=== PATIENT | female | born 1960 | race Caucasian/White ===

== ENCOUNTER 2018-05-04 09:04 | Emergency (ER) | payer BC, OTHER ==
--- NOTE | 2018-05-04 09:36 | UC ---
General HPI - HPI Summary HPI Summary: Patient was stung by a swarm of bees that got entangled in her hair about an hour ago. She was stung on right ear, scalp, forehead. Hx of asthma, denies itch , dysphagia or wheezing, denies SOB or CP/palpitations. She is not allergic to bee venom. She states last episode of asthma was 2 months ago in February. - History of Current Complaint Chief Complaint: UCSkin Stated Complaint: BEE STING(S) Time Seen by Provider: 05/04/18 09:14 Hx Last Menstrual Period: 2013 Pain Intensity: 4 - Allergy/Home Medications Allergies/Adverse Reactions: Allergies Allergy/AdvReac Type Severity Reaction Status Date / Time environmental Allergy Runny Nose Uncoded 05/04/18 09:16 Home Medications: Home Medications Nebulizer Tx 1 unit INH Q8HR PRN 05/04/18 [History Confirmed 05/04/18] Rx Nasal [place] 2 spray BOTH NARES BID 05/04/18 [History Confirmed 05/04/18] PMH/Surg Hx/FS Hx/Imm Hx Previously Healthy: Yes Respiratory History: Asthma - Surgical History Surgical History: Yes Surgery Procedure, Year, and Place: Lithotripsy x 2-2001 - Family History Known Family History: Positive: None - Social History Alcohol Use: Rare Substance Use Type: None Smoking Status (MU): Never Smoked Tobacco - Immunization History Most Recent Influenza Vaccination: 06/2013 Most Recent Tetanus Shot: UNKNOWN Review of Systems Constitutional: Negative Skin: Rash Eyes: Negative ENT: Negative Respiratory: Negative Cardiovascular: Negative Gastrointestinal: Negative Genitourinary: Negative Motor: Negative Neurovascular: Negative Musculoskeletal: Negative Neurological: Negative All Other Systems Reviewed And Are Negative: Yes Physical Exam - Summary Physical Exam Summary: Patient was stung several times on face, ear and scalp by bees. No constitutional symptoms, take benadryl when at home and as needed, hydrocortisone cream for areas where is itchy or inflamed for a maximun of 5 days. f/u with PCP, referred to [facility] [place] Triage Information Reviewed: Yes Appearance: Well-Appearing, No Pain Distress, Well-Nourished Vital Signs: Initial Vital Signs Temp 98 F 05/04/18 09:07 Pulse 80 05/04/18 09:07 Resp 16 05/04/18 09:07 BP 168/92 05/04/18 09:07 Pulse Ox 98 05/04/18 09:07 Vital Signs Reviewed: Yes Eyes: Positive: Conjunctiva Clear ENT: Positive: Hearing grossly normal, Pharynx normal, TMs normal, Uvula midline Neck: Positive: Supple, Nontender, No Lymphadenopathy Respiratory: Positive: Chest non-tender, Lungs clear, Normal breath sounds, No respiratory distress Cardiovascular: Positive: RRR, No Murmur, Pulses Normal, Brisk Capillary Refill Abdomen Description: Positive: Nontender, No Organomegaly, Soft Skin Exam: Other Skin: Positive: rashes - erythema of right ear [place] without bruising or soft tissue swelling, no d/c or bleed. Erythema on forehead and scalp area with similar characteristics Course/Dx - Course Course Of Treatment: patient wit - Differential Dx - Multi-Symptom Provider Diagnoses: Bee stings. Elevated BP without history of HTN Discharge - Sign-Out/Discharge Documenting (check all that apply): Patient Departure All imaging exams completed and their final reports reviewed: No Studies - Discharge Plan Condition: Stable Disposition: HOME Prescriptions: Hydrocortisone 2.5% CREAM(NF) 1 applic TOPICAL BID PRN 5 Days #1 tube PRN Reason: Itching Patient Education Materials: Insect Bite or Sting (ED), Hydrocortisone (On the skin) Referrals: [facility] [place] PHYSICIAN REFERRAL [Outside] No Primary Care Phys,NOPCP [Primary Care Provider] - - Billing Disposition and Condition Condition: STABLE Disposition: Home
[2018-05-04] MEDS ORDERED: diPHENhydraMINE PO* 25 MG PO ONE (09:37)
[2018-05-04 09:55] VITALS: BP 147/79
--- OUTSIDE RECORDS SUMMARY | 2018-05-04 10:07 | XMS REPORT ---
:1960 External Reference #:[id number] Author Organization [facility] Address [address] [place] [address] Phone [phone] Care Team Providers Name Role Phone Suzette Mota M.D. Care Team Information Product Manager Unavailable Gregoria Manzo N.P. Primary Care Physician Unavailable Payers Type Date Identification Numbers Payment Provider Subscriber Commercial Effective: Policy Number: [id number] [facility] Josh Armstrong 2011 Healthcare Expires: 2013 PayID: [id number] [address] [place] [address] Medigap Part B Effective: 2013 Policy Number: BC/BS Of [place] Miguel Armstrong [id number] PayID: [id number] [address] [address] [place] [address] Problems Date Description Provider Status Onset: 12/08/2016 Uncomplicated moderate persistent EleonoraBIB Shetty Active asthma Onset: 12/08/2016 Allergic rhinitis due to animals BIB Burt Active Onset: 06/24/2014 Exacerbation of asthma SHERWIN Nunn Active Onset: 02/27/2014 Extrinsic asthma without status SHERWIN Nunn Active asthmaticus Onset: 02/27/2014 Allergic rhinitis SHERWIN Nunn Active Onset: 02/27/2014 Allergic rhinitis due to pollen SHERWIN Nunn Active Family History Date Family Member(s) Problem(s) Comments General Seasonal Allergies First Brother Seasonal Allergies First Sister Seasonal Allergies Social History Type Date Description Comments Marital Status Legal Status: Lives With Spouse Lives With niece Smoke-Free Home is smoke-free Smoke-Free Work is smoke-free Pets 2 cats Pets 3 dogs 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 ETOH Use Occasionally consumes alcohol Smoking Patient has never smoked Recreational Drug Use Denies Drug Use Allergies, Adverse Reactions, Alerts Date Description Reaction Status Severity Comments 04/24/2014 NKDA active Medications Medication Date Status Form Strength Qnty SIG Indications Ordering Provider Ipratropium 04/25/ Active Solution 0.03% 30ml 2 squirts J30.1 Patti [place] 2018 each nostril Uldrich, in the [facility] morning and at night Dymista 12/08/ Active Suspension 137-50mcg/ 23gm 1 squirt J30.1 Patti 2017 Act each nostril Uldrich, once a day [facility] Nebulizer 06/24/ Active Misc 1unit with tubing J30.1 Armida 2014 s and Karly, supplies, [facility] use as directed. dx: 493.00 Ipratropium 06/24/ Active Solution 0.5-2.5(3) 1box 1 vial via J30.1 Armida [place]/Albut 2014 mg/3ML nebulizer Karly, jenelle Sulfate every 6-8 [facility] hours as needed. Proair HFA 02/27/ Active Aerosol 108(90Base 17gm two Patti 2013 ) mcg/Act inhalations Uldrich, every 4 [facility] hours as needed for cough, wheezing or chest tightness Advair Diskus / Active Aerosol 500-50mcg/ 1unit 1 puff twice Armida 0000 Dose s daily Karly, [facility] Ipratropium 04/25/ Hx Solution 0.06% 15ml 2 sprays per J30.1 Patti [place] Nasal 2018 - nostril Uldrich, [place] 04/25/ every 4 [facility] 2018 hours as needed for nasal discharge Medications Administered in Office Medication Date Status Form Strength Qnty SIG Indications Ordering Provider Injection 08/09/ Administered Injection Alex Oro M.D. Injection 07/05/ Administered Injection Alex 2011 Boyd Oro Injection 06/14/ Administered Injection Alex 2011 Boyd Oro Injection 05/24/ Administered Injection Alex 2011 Boyd Oro Injection 05/10/ Administered Injection Alex 2011 Boyd Oro Injection 04/19/ Administered Injection Alex 2011 Boyd Oro Injection 04/05/ Administered Injection Alex 2011 Boyd Oro Injection 03/22/ Administered Injection Alex 2011 Boyd Oro Injection 02/20/ Administered Injection Alex 2011 Boyd Oro Injection 01/30/ Administered Injection Alex 2011 Boyd Oro Injection 01/18/ Administered Injection Alex 2011 Boyd Oro Injection 01/04/ Administered Injection Alex 2011 Boyd Oro Injection 12/14/ Administered Injection Alex 2011 Boyd Oro Injection 11/30/ Administered Injection Alex 2011 Boyd Oro Injection 10/11/ Administered Injection Alex 2011 Boyd Oro Injection 09/15/ Administered Injection Alex 2011 Boyd Oro Injection 08/25/ Administered Injection Sridhar Luis 2010 AbdulazizDAndreina Injection 08/02/ Administered Injection Gris Bhavana 2010 Boyd Smith Injection 07/07/ Administered Injection Alex 2010 Boyd Oro Injection 06/23/ Administered Injection Alex 2010 Boyd Oro Injection 06/09/ Administered Injection Alex 2010 Boyd Oro Injection 05/26/ Administered Injection Alex 2010 Boyd Oro Injection 05/05/ Administered Injection Alex 2010 Boyd Oro Injection 04/21/ Administered Injection Alex 2010 Boyd Oro Injection 03/31/ Administered Injection Alex 2010 Boyd Oro Injection 03/10/ Administered Injection Alex 2010 Boyd Oro Injection 02/17/ Administered Injection Alex 2010 Boyd Oro Injection 01/20/ Administered Injection Alex 2010 Abdulaziz OroDAndreina Injection 01/06/ Administered Injection Alex 2010 Boyd Oro Injection 12/23/ Administered Injection Alex 2010 Boyd Oro Injection 12/09/ Administered Injection Alex 2010 Boyd Oro Injection 11/25/ Administered Injection Alex 2010 Boyd Oro Injection 11/11/ Administered Injection Alex 2010 Boyd Oro Injection 10/21/ Administered Injection Alex 2010 Boyd Oro Injection 09/23/ Administered Injection Alex 2010 Boyd Oro Injection 08/19/ Administered Injection Alex 2009 Boyd Oro Injection 07/20/ Administered Injection Alex 2009 Boyd Oro Injection 06/24/ Administered Injection Alex 2009 Boyd Oro Injection 06/08/ Administered Injection Alex 2009 Boyd Oro Injection 05/25/ Administered Injection Alex 2009 Boyd Oro Injection 04/29/ Administered Injection Alex 2009 Boyd Oro Injection 03/25/ Administered Injection Alex 2009 Boyd Oro Injection 03/11/ Administered Injection Alex 2009 Boyd Oro Injection 02/25/ Administered Injection Alex 2009 Boyd Oro Injection 02/11/ Administered Injection Alex 2009 Boyd Oro Injection 01/21/ Administered Injection Alex 2009 Boyd Oro Injection 01/07/ Administered Injection Alex 2009 Boyd Oro Injection 12/24/ Administered Injection Alex 2009 Boyd Oro Injection 11/12/ Administered Injection Alex 2009 Boyd Oro Injection 10/15/ Administered Injection Alex 2009 Boyd Oro Injection 09/24/ Administered Injection [facility] 2009 Catracho Graves M.D. Injection 08/04/ Administered Injection Alex 2008 Boyd Oro Injection 07/16/ Administered Injection Alex 2008 Boyd Oro Injection 06/25/ Administered Injection Alex 2008 Boyd Oro Injection 06/11/ Administered Injection Alex 2008 Boyd Oro Injection 05/28/ Administered Injection Alex 2008 Boyd Oro Injection 05/14/ Administered Injection Alex 2008 Boyd Oro Injection 04/30/ Administered Injection Alex 2008 Boyd Oro Injection 04/16/ Administered Injection Alex 2008 Boyd Oro Injection 04/02/ Administered Injection Alex 2009 Boyd Oro Injection 03/17/ Administered Injection Alex 2008 Boyd Oro Injection 02/12/ Administered Injection Alex 2008 Boyd Oro Injection 01/27/ Administered Injection Alex 2008 Boyd Oro Injection 01/13/ Administered Injection Alex 2008 Boyd Oro Injection 12/30/ Administered Injection Alex 2008 Boyd Oro Injection 12/16/ Administered Injection Alex 2009 Boyd Oro Injection 11/13/ Administered Injection Alex 2009 Boyd Oro Injection 10/16/ Administered Injection Alex 2008 Boyd Oro Injection 09/16/ Administered Injection Alex 2008 Boyd Oro Injection 08/26/ Administered Injection Alex 2007 Boyd Oro Injection 08/12/ Administered Injection Alex 2007 Boyd Oro Injection 07/08/ Administered Injection Alex 2007 Boyd Oro Injection 06/24/ Administered Injection Alex 2007 Boyd Oro Injection 06/10/ Administered Injection Alex 2007 Boyd Oro Injection 05/20/ Administered Injection Alex 2007 Boyd Oro Injection 05/08/ Administered Injection Alex 2007 Boyd Oro Injection 04/22/ Administered Injection Alex 2007 Boyd Oro Injection 04/03/ Administered Injection Alex 2007 Boyd Oro Injection 03/20/ Administered Injection Alex 2007 Boyd Oro Injection 02/27/ Administered Injection Alex 2007 Boyd Oro Injection 02/13/ Administered Injection Alex 2007 Boyd Oro Injection 01/30/ Administered Injection Alex 2007 Boyd Oro Injection 01/16/ Administered Injection Alex 2007 Boyd Oro Celestone/Cor 01/14/ Administered Injection Alex tisone 2007 Shorty [id number] Enrike Nix cc Injection 01/02/ Administered Injection Alex 2007 Boyd Oro Injection 12/10/ Administered Injection Alex 2007 Boyd Oro Injection 11/19/ Administered Injection Alex 2007 Boyd Oro Injection 11/06/ Administered Injection Alex 2007 Boyd Oro Injection 10/16/ Administered Injection Alex 2007 Boyd Oro Injection 09/27/ Administered Injection Alex 2007 Boyd Oro Injection 09/13/ Administered Injection Alex 2007 Boyd Oro Injection 08/30/ Administered Injection Alex 2006 Boyd Oro Injection 07/31/ Administered Injection Alex 2006 Boyd Oro Injection 07/17/ Administered Injection Alex 2006 Boyd Oro Injection 07/03/ Administered Injection Alex 2006 Boyd Oro Injection 06/12/ Administered Injection Alex 2006 Boyd Oro Injection 05/29/ Administered Injection Alex 2007 Boyd Oro Injection 05/08/ Administered Injection Alex 2007 Boyd Oro Injection 04/17/ Administered Injection Alex 2007 Boyd Oro Injection 04/03/ Administered Injection Alex 2007 Boyd Oro Injection 03/15/ Administered Injection Alex 2007 Boyd Oro Injection 02/20/ Administered Injection Alex 2007 Boyd Oro Injection 02/06/ Administered Injection Alex 2007 Boyd Oro Injection 01/23/ Administered Injection Alex 2007 Boyd Oro Injection 01/09/ Administered Injection Alex 2007 Boyd Oro Injection 12/28/ Administered Injection Alex 2007 Boyd Oro Injection 12/07/ Administered Injection Alex 2007 Boyd Oro Injection 11/23/ Administered Injection Alex 2007 Boyd Oro Injection 11/07/ Administered Injection Alex 2007 Boyd Oro Injection 10/17/ Administered Injection Alex 2007 Boyd Oro Injection 09/19/ Administered Injection Alex 2007 Boyd Oro Injection 09/05/ Administered Injection Alex 2006 Boyd Oro Injection 08/22/ Administered Injection Alex 2005 Boyd Oro Injection 08/08/ Administered Injection Alex 2006 Boyd Oro Injection 07/27/ Administered Injection Alex 2006 Boyd Oro Injection 06/27/ Administered Injection Alex 2006 Boyd Oro Injection 06/06/ Administered Injection Alex 2006 Boyd Oro Injection 05/23/ Administered Injection Alex 2006 Boyd Oro Injection 05/09/ Administered Injection Alex 2006 Boyd Oro Injection 04/25/ Administered Injection Alex 2006 Boyd Oro Injection 04/11/ Administered Injection Alex 2006 Boyd Oro Injection 03/28/ Administered Injection Alex 2006 Boyd Oro Injection 02/28/ Administered Injection Alex 2006 Boyd Oro Injection 02/14/ Administered Injection Alex 2006 Boyd Oro Injection 01/31/ Administered Injection Alex 2006 Boyd Oro Injection 01/12/ Administered Injection Alex 2006 Boyd Oro Injection 12/29/ Administered Injection Alex 2006 Boyd Oro Injection 12/01/ Administered Injection Alex 2006 Boyd Oro Injection 11/15/ Administered Injection Alex 2006 Boyd Oro Injection 10/25/ Administered Injection Alex 2006 Boyd Oro Injection 10/11/ Administered Injection Alex 2006 Boyd Oro Injection 09/13/ Administered Injection Alex 2006 Boyd Oro Injection 08/18/ Administered Injection Alex 2005 Boyd Oro Injection 07/21/ Administered Injection Alex 2005 Boyd Oro Injection 07/07/ Administered Injection Alex 2005 Boyd Oro Injection 06/23/ Administered Injection Alex 2004 Boyd Oro Injection 06/07/ Administered Injection Alex 2004 Boyd Oro Injection 05/24/ Administered Injection Alex 2004 Boyd Oro Injection 05/10/ Administered Injection Alex 2005 Boyd Oro Injection 04/14/ Administered Injection Alex 2005 Boyd Oro Injection 03/31/ Administered Injection Alex 2005 Boyd Oro Injection 03/17/ Administered Injection Alex 2005 Boyd Oro Injection 03/01/ Administered Injection Alex 2005 Bhavana Oro.DAndreina Injection 02/15/ Administered Injection Alex 2005 Shorty M.D. Injection 02/03/ Administered Injection Alex 2005 Shorty M.D. Injection 01/18/ Administered Injection Alex 2005 Bhavana Oro.D. Injection 01/04/ Administered Injection Alex 2005 Bhavana Oro.DAndreina Injection 12/21/ Administered Injection Alex 2005 Bhavana Oro.D. Injection 12/09/ Administered Injection Alex 2005 Abdulaziz OroDAndreina Injection 11/11/ Administered Injection Alex 2005 Abdulaziz OroDAndreina Injection 10/12/ Administered Injection Alex 2005 Bhavana rOo.DAndreina Injection 09/14/ Administered Injection Alex 2005 Abdulaziz OroDAndreina Injection 08/19/ Administered Injection Alex 2004 Boyd Oro Injection 07/22/ Administered Injection Alex 2004 Boyd Oro Injection 06/24/ Administered Injection Alex 2004 Bhavana Oro.D. Injection 06/08/ Administered Injection Alex 2004 Bahvana Oro.DAndreina Injection 05/25/ Administered Injection Alex 2004 Boyd Oro Injection 05/11/ Administered Injection Alex 2004 Boyd Oro Injection 04/22/ Administered Injection Alex 2004 Bhavana Oro.DAndreina Injection 03/30/ Administered Injection Alex 2004 Abdulaziz OroD. Injection 03/18/ Administered Injection Alex 2004 Bhavana Oro.D. Injection 03/02/ Administered Injection Alex 2004 Shorty M.D. Injection 02/16/ Administered Injection Alex 2004 Bhavana Oro.DAndreina Injection 02/02/ Administered Injection Alex 2004 Boyd Oro Injection 01/19/ Administered Injection Alex 2004 Bhavana Oro.D. Injection 01/05/ Administered Injection Alex 2004 Shorty M.D. Injection 12/22/ Administered Injection Alex 2004 Bhavana Oro.D. Injection 12/03/ Administered Injection Alex 2004 Abdulaziz OroDAndreina Injection 11/04/ Administered Injection Alex 2004 Abdulaziz OroDAndreina Injection 10/02/ Administered Injection Alex 2003 Boyd Oro Injection 09/02/ Administered Injection Alex 2002 Boyd Oro Injection 07/31/ Administered Injection Alex 2002 Boyd Oro Injection 07/03/ Administered Injection Alex 2002 Boyd Oro Injection 06/19/ Administered Injection Alex 2002 Boyd Oro Injection 06/05/ Administered Injection Alex 2002 Boyd Oro Injection 05/22/ Administered Injection Alex 2002 Boyd Oro Injection 05/08/ Administered Injection Alex 2002 Boyd Oro Injection 04/24/ Administered Injection Alex 2002 Boyd Oro Injection 04/10/ Administered Injection Alex 2002 Boyd Oro Immunizations CPT Code Status Date Vaccine Lot # [id number] Given 07/03/2014 Pneumococcal Vaccine 20045 Given 07/03/2014 Influenza Vaccine 48610 Given 06/11/2013 Influenza Vaccine 27711 Given Unknown Influenza Vaccine 93487 Given Unknown Influenza Vaccine 67000 Given Unknown Pneumococcal Conjugate Vaccine 13 Valent For Intramuscular Use Vital Signs Date Vital Result Comment 04/25/2018 Height 65 inches 5'5" Weight 131.00 lb Weight in kg's 59.422 Respiratory Rate 16 /min Heart Rate 85 /min O2 % BldC Oximetry 98 % BP Systolic 115 mmHg BP Diastolic 78 mmHg Asthma Control Test 24 BMI (Body Mass Index) 21.8 kg/m2 12/08/2016 Height 65 inches 5'5" Weight 128.00 lb Weight in kg's 58.061 Respiratory Rate 16 /min Heart Rate 73 /min O2 % BldC Oximetry 98 % BP Systolic 135 mmHg BP Diastolic 72 mmHg Asthma Control Test 24 BMI (Body Mass Index) 21.3 kg/m2 07/08/2014 Height 65 inches 5'5" Weight 137.00 lb Weight in kg's 62.143 Respiratory Rate 19 /min Heart Rate 80 /min O2 % BldC Oximetry 98 % BP Systolic 122 mmHg BP Diastolic 78 mmHg Asthma Control Test 14 BMI (Body Mass Index) 22.8 kg/m2 06/24/2014 Height 65 inches 5'5" Weight 137.00 lb Weight in kg's 62.143 Respiratory Rate 16 /min Heart Rate 81 /min Body Temperature 98.2 F O2 % BldC Oximetry 98 % BP Systolic 120 mmHg BP Diastolic 90 mmHg Asthma Control Test 5 BMI (Body Mass Index) 22.8 kg/m2 04/24/2014 Height 65 inches 5'5" Weight 142.00 lb Weight in kg's 64.411 Respiratory Rate 16 /min Heart Rate 87 /min O2 % BldC Oximetry 97 % BP Systolic 122 mmHg BP Diastolic 80 mmHg Asthma Control Test 21 BMI (Body Mass Index) 23.6 kg/m2 02/27/2014 Height 65 inches 5'5" Weight 137.00 lb Weight in kg's 62.143 Respiratory Rate 18 /min Heart Rate 72 /min O2 % BldC Oximetry 97 % BP Systolic 130 mmHg BP Diastolic 74 mmHg BMI (Body Mass Index) 22.8 kg/m2 Results Description No Information Procedures Date CPT Code Description Status 04/25/2018 43039 Pre PFT Completed 04/20/2018 90879 Extract 1-10 Completed 10/04/2017 12978 Extract 1-10 Completed 10/04/2017 44424 Extract 1-10 Completed 05/03/2017 07941 Extract 1-10 Completed 05/03/2017 38517 Extract 1-10 Completed 12/08/2016 40318 Pre PFT Completed 11/01/2016 61384 Extract 1-10 Completed 05/13/2016 62806 Extract 1-10 Completed 01/06/2016 35330 Extract 1-10 Completed 06/11/2015 35585 Extract 1-10 Completed 01/21/2015 40964 Extract 1-10 Completed 06/24/2014 02840 Ippb Completed 06/24/2014 90930 Ippb Completed 06/24/2014 23365 Extract 1-10 Completed 04/24/2014 26287 Pre PFT Completed 04/24/2014 49778 Pre PFT Completed 02/27/2014 87257 Pre PFT Completed 02/27/2014 44130 Pre PFT Completed 02/14/2014 76067 Extract 1-10 Completed 05/14/2013 51984 Extract 1-10 Completed 01/23/2013 69177 Extract 1-10 Completed 08/09/2012 16974 Injection Completed 07/05/2012 38436 Injection Completed 06/14/2012 44977 Injection Completed 05/24/2012 33185 Extract 1-10 Completed 05/24/2012 89524 Injection Completed 05/10/2012 90069 Injection Completed 04/19/2012 93452 Injection Completed 04/05/2012 31462 Injection Completed 03/22/2012 85634 Injection Completed 02/21/2012 32305 Injection Completed 01/31/2012 29869 Injection Completed 01/19/2012 19425 Injection Completed 01/05/2012 69075 Injection Completed 12/15/2011 72701 Injection Completed 12/01/2011 04769 Injection Completed 11/01/2011 88959 Extract 1-10 Completed 10/11/2011 24531 Injection Completed 09/15/2011 08569 Injection Completed 09/15/2011 52247 Oxygen Level - Pulse Oximiter Completed 09/15/2011 27546 Pulmonary Function Test Completed 08/25/2011 84772 Injection Completed 08/02/2011 18023 Injection Completed 07/07/2011 30697 Injection Completed 06/23/2011 10425 Injection Completed 06/09/2011 59859 Injection Completed 05/26/2011 85085 Injection Completed 05/05/2011 67665 Injection Completed 04/21/2011 23581 Injection Completed 04/12/2011 19891 Extract 1-10 Completed 03/31/2011 81171 Injection Completed 03/17/2011 25069 Pulmonary Function Test Completed 03/10/2011 29766 Injection Completed 02/17/2011 26088 Injection Completed 01/20/2011 07347 Injection Completed 01/06/2011 17990 Injection Completed 12/23/2010 17806 Injection Completed 12/09/2010 52794 Injection Completed 11/25/2010 61555 Injection Completed 11/11/2010 73839 Injection Completed 10/21/2010 76474 Injection Completed 10/19/2010 81170 Extract 1-10 Completed 09/23/2010 42819 Injection Completed 08/19/2010 55609 Injection Completed 07/20/2010 26427 Injection Completed 06/24/2010 48562 Injection Completed 06/08/2010 62279 Injection Completed 06/08/2010 60677 Pulmonary Function Test Completed 05/25/2010 71692 Injection Completed 04/29/2010 32718 Injection Completed 03/25/2010 32423 Injection Completed 03/11/2010 41212 Injection Completed 02/25/2010 58663 Injection Completed 02/23/2010 24452 Extract 1-10 Completed 02/11/2010 81028 Injection Completed 01/21/2010 07618 Injection Completed 01/07/2010 21564 Injection Completed 12/24/2009 37892 Injection Completed 11/12/2009 13154 Injection Completed 10/15/2009 18364 Injection Completed 09/24/2009 50708 Injection Completed 08/04/2009 75550 Injection Completed 07/16/2009 00115 Injection Completed 06/25/2009 11798 Injection Completed 06/23/2009 37324 Extract 1-10 Completed 06/11/2009 90076 Injection Completed 05/28/2009 85070 Injection Completed 05/14/2009 17245 Injection Completed 04/30/2009 11089 Injection Completed 04/16/2009 36250 Injection Completed 04/02/2009 26244 Injection Completed 03/17/2009 99037 Injection Completed 03/17/2009 30573 Pulmonary Function Test Completed 02/12/2009 57342 Injection Completed 01/27/2009 72711 Injection Completed 01/13/2009 86844 Injection Completed 01/08/2009 39380 Extract 1-10 Completed 12/30/2008 83402 Injection Completed 12/16/2008 87637 Injection Completed 11/13/2008 64247 Injection Completed 10/16/2008 06714 Injection Completed 09/16/2008 29138 Injection Completed 08/26/2008 58476 Injection Completed 08/12/2008 14654 Injection Completed 07/08/2008 64679 Injection Completed 06/24/2008 13333 Injection Completed 06/10/2008 68950 Injection Completed 05/29/2008 39947 Extract 1-10 Completed 05/20/2008 56190 Injection Completed 05/08/2008 02272 Injection Completed 04/22/2008 02457 Injection Completed 04/03/2008 02408 Injection Completed 03/20/2008 87575 Injection Completed 02/28/2008 94320 Injection Completed 02/14/2008 49676 Injection Completed 01/31/2008 97733 Injection Completed 01/17/2008 43482 Injection Completed 01/03/2008 06105 Injection Completed 12/20/2007 70329 Extract 1-10 Completed 12/11/2007 39713 Injection Completed 11/20/2007 20468 Injection Completed 11/06/2007 46631 Injection Completed 10/16/2007 68686 Injection Completed 10/11/2007 68074 Pulmonary Function Test Completed 09/27/2007 82938 Injection Completed 09/13/2007 99411 Injection Completed 08/30/2007 06694 Injection Completed 07/31/2007 84619 Injection Completed 07/17/2007 29942 Injection Completed 07/03/2007 74949 Injection Completed 06/14/2007 67049 Extract 1-10 Completed 06/12/2007 45220 Injection Completed 05/29/2007 79152 Injection Completed 05/08/2007 20135 Injection Completed 04/17/2007 51173 Injection Completed 04/03/2007 88144 Injection Completed 03/15/2007 31240 Injection Completed 02/20/2007 27432 Injection Completed 02/06/2007 12581 Injection Completed 01/23/2007 30818 Injection Completed 01/09/2007 41019 Injection Completed 01/04/2007 59749 Extract 1-10 Completed 12/28/2006 63661 Injection Completed 12/07/2006 75237 Injection Completed 11/23/2006 30300 Injection Completed 11/07/2006 31106 Injection Completed 10/17/2006 32378 Injection Completed 09/19/2006 28932 Injection Completed 09/05/2006 07713 Injection Completed 08/22/2006 59359 Injection Completed 08/15/2006 86859 Pulmonary Function Test Completed 08/08/2006 61223 Injection Completed 07/27/2006 07891 Injection Completed 07/20/2006 17960 Extract 1-10 Completed 06/27/2006 45997 Injection Completed 06/06/2006 44332 Injection Completed 05/23/2006 82676 Injection Completed 05/09/2006 23959 Injection Completed 04/25/2006 41013 Injection Completed 04/11/2006 15252 Injection Completed 03/28/2006 44204 Injection Completed 02/28/2006 01535 Injection Completed 02/14/2006 21638 Injection Completed 01/31/2006 89022 Injection Completed 01/24/2006 71732 Pulmonary Function Test Completed 01/19/2006 23348 Extract 1-10 Completed 01/12/2006 99553 Injection Completed 12/29/2005 98653 Injection Completed 12/01/2005 40946 Injection Completed 11/15/2005 71714 Injection Completed 10/25/2005 12119 Injection Completed 10/11/2005 46995 Injection Completed 09/13/2005 67653 Injection Completed 08/18/2005 38291 Injection Completed 07/21/2005 47646 Injection Completed 07/07/2005 91440 Injection Completed 07/05/2005 50649 Extract 1-10 Completed 06/23/2005 08466 Injection Completed 06/07/2005 71622 Injection Completed 05/24/2005 97871 Injection Completed 05/10/2005 55797 Injection Completed 04/14/2005 26931 Injection Completed 03/31/2005 54175 Injection Completed 03/17/2005 41761 Injection Completed 03/01/2005 16004 Injection Completed 02/15/2005 33506 Injection Completed 02/03/2005 15794 Injection Completed 01/25/2005 80972 Pulmonary Function Test Completed 01/20/2005 32726 Extract 1-10 Completed 01/18/2005 83866 Injection Completed 01/04/2005 28361 Injection Completed 12/21/2004 32147 Injection Completed 12/09/2004 57184 Injection Completed 11/11/2004 33169 Injection Completed 10/12/2004 52405 Injection Completed 09/14/2004 01799 Injection Completed 08/19/2004 06650 Injection Completed 07/22/2004 12888 Injection Completed 06/24/2004 77081 Injection Completed 06/17/2004 55802 Extract 1-10 Completed 06/08/2004 15096 Injection Completed 05/25/2004 99653 Injection Completed 05/11/2004 16901 Injection Completed 04/22/2004 77729 Injection Completed 03/30/2004 98011 Injection Completed 03/18/2004 82407 Injection Completed 03/02/2004 07199 Injection Completed 02/17/2004 15114 Injection Completed 02/03/2004 85516 Injection Completed 01/20/2004 20384 Injection Completed 01/15/2004 21509 Extract 1-10 Completed 01/06/2004 68839 Injection Completed 12/23/2003 67600 Injection Completed 12/11/2003 54379 Pulmonary Function Test Completed 12/04/2003 37704 Injection Completed 11/04/2003 82188 Injection Completed 10/02/2003 30897 Injection Completed 09/02/2003 34328 Injection Completed 07/31/2003 93593 Injection Completed 07/03/2003 04483 Injection Completed 06/19/2003 07643 Injection Completed 06/05/2003 09037 Injection Completed 06/03/2003 50258 Extract 1-10 Completed 05/22/2003 66953 Injection Completed 05/08/2003 21113 Injection Completed 04/24/2003 69427 Injection Completed 04/10/2003 73831 Injection Completed Encounters Type Date Location Provider CPT E/M Dx Office Visit 04/25/2018 3:40p [facility] BIB Ferrell 58998 J30.1 J30.2 J30.81 J30.89 J45.40 Office Visit 12/08/2016 10:00a [facility] LIN Burt-C 11635 J30.1 J30.2 J30.81 J30.89 J45.40 Z68.21 Office Visit 07/08/2014 9:00a [place] [facility] 62472 493.00 Office Visit 06/24/2014 10:00a [place] [facility] 50482 493.00 493.92 Office Visit 04/24/2014 2:40p [place] [facility] 78561 493.00 477.0 477.8 Office Visit 02/27/2014 9:20a [place] [facility] 62817 477.0 477.8 493.00 Office Visit 08/25/2011 4:00p [place] Sridhar Luis M.D. 46653 477.0 477.8 Plan of Care 04/25/2018 - EPIFANIO FerrellP-CJ30.1 Allergic rhinitis due to kceoplV44.2 Other seasonal allergic elyfjnvdE98.81 Allergic rhinitis due to animal (cat) ( dog) hair and ayrhvxP74.89 Other allergic cjbzoyidV46.40 Moderate persistent asthma, uncomplicatedNew Medication:Ipratropium [place] 0.03 %Ipratropium [place] Nasal [place] 0.06 %Follow up:1 year with pre PFTRecommendations:Continue all medications as prescribed.Refrain from wearing perfumes/scented colognes while visitingour office. Start the Ipratropium 2 sprays up to 6 times a day Continue the Advair 500mg1 puff twice daily Continue the Dymista 2 sprays daily Continue the ProAir 2 puffs every 4 hours as needed for cough, shortness of breath, wheezing or chest congestion.Monitor Albuterol use. If using more than 2x/week, please call the office as your asthma medications may need to be adjusted. Continue the [facility]
== END 2018-05-04 10:04 | disposition home or self-care (01) ==
LOC: UCCORT 09:04
DX: T63.441A Toxic effect of venom of bees, accidental (unintentional), initial encounter (principal); L53.0 Toxic erythema; Y92.9 Unspecified place or not applicable; J45.909 Unspecified asthma, uncomplicated
CPT/HCPCS: 99212; A9270-GY; G0463

== ENCOUNTER 2018-08-10 16:09 | Emergency (ER) | payer BC, OTHER ==
[2018-08-10 16:37] VITALS: BP 149/77
--- NOTE | 2018-08-10 18:15 | UC ---
Skin Complaint HPI - HPI Summary HPI Summary: Per well driller "HERE W/ REDNESS/BRUISING/WARM TO TOUCH AND ITCH ON RLE SINCE LAST EVENING. DENIES INJURY. DENIES BEING ON BLOOD THINNERS/NO HX OF. STATES SHE WAS ITCHING RLE ALOT YESTERDAY AND NOTICED REDNESS/BRUISING THEN. ICED RLE W / SOME PAIN/ITCH RELIEF. PCP DR. HERRERA. PT WOR" -she denies CP/SOB. she wonders if she got bit by a spinder. states she is very active. saw school nurse who recommended she have this evaluated. has had bruises in past. says she bruises easily and has had normal testing. Mom had PE at 88. she denies any personal hx PE. she feels fine otherwise - History of Current Complaint Chief Complaint: UCLowerExtremity Time Seen by Provider: 08/10/18 18:06 Stated Complaint: LEG ISSUE Hx Last Menstrual Period: 2013 Pain Intensity: 0 - Allergy/Home Medications Allergies/Adverse Reactions: Allergies Allergy/AdvReac Type Severity Reaction Status Date / Time environmental Allergy Runny Nose Uncoded 08/10/18 16:29 Review of Systems All Other Systems Reviewed And Are Negative: Yes Constitutional: Positive: Negative Skin: Positive: Bruising Eyes: Positive: Negative ENT: Positive: Negative Respiratory: Positive: Negative Cardiovascular: Positive: Negative Gastrointestinal: Positive: Negative Genitourinary: Positive: Negative Motor: Positive: Negative Neurovascular: Positive: Negative Musculoskeletal: Positive: Negative Neurological: Positive: Negative Psychological: Positive: Negative Is Patient Immunocompromised?: No PMH/Surg Hx/FS Hx/Imm Hx Previously Healthy: Yes - Surgical History Surgical History: Yes Surgery Procedure, Year, and Place: Lithotripsy x 2-2001 - Family History Known Family History: Positive: None - Social History Alcohol Use: Rare Substance Use Type: None Smoking Status (MU): Never Smoked Tobacco - Immunization History Most Recent Influenza Vaccination: 06/2013 Most Recent Tetanus Shot: UNKNOWN Physical Exam Triage Information Reviewed: Yes Appearance: Well-Appearing, No Pain Distress, Well-Nourished - very pleasant, very talkative Vital Signs: Initial Vital Signs Temp 98.3 F 08/10/18 16:30 Pulse 89 08/10/18 16:30 Resp 16 08/10/18 16:30 BP 149/77 08/10/18 16:30 Pulse Ox 98 08/10/18 16:30 Vital Signs Reviewed: Yes Eye Exam: Normal ENT Exam: Normal ENT: Positive: Pharynx normal Neck exam: Normal Neck: Positive: Supple, Nontender, No Lymphadenopathy Respiratory Exam: Normal Respiratory: Positive: Lungs clear Cardiovascular Exam: Normal Cardiovascular: Positive: RRR, No Murmur, Pulses Normal Abdominal Exam: Normal Abdomen Description: Positive: Nontender, Soft Musculoskeletal Exam: Normal Neurological Exam: Normal Psychological Exam: Normal Skin: Positive: Other - rt lateral calf with evolving ecchymosis in 2/3 of lateral leg. evolving bruise w/ dark purple, faading purple and yellow discoloration. mild central erythema that is cool to touch. no dc. no abscess. ? central small pore. Course/Dx - Course Course Of Treatment: Rt leg swelling/bruising. Mom had PE in late 80s. she agrees to go to ER for US but prfers to go back to work until she is done at 10 pm and then go to the ER. she understands risks of DVT/PE. - Differential Diagnoses - Skin Complaint Differential Diagnoses: Cellulitis, Other - contusion, DVT - Diagnoses Provider Diagnosis: Contusion, lower leg Discharge - Sign-Out/Discharge Documenting (check all that apply): Patient Departure All imaging exams completed and their final reports reviewed: No Studies - Discharge Plan Condition: Stable Disposition: HOME Patient Education Materials: Contusion in Adults (ED) Referrals: Dioni Herrera MD [Primary Care Provider] - Additional Instructions: Make sure to go to the ER tonight to have an US to rule out a blood clot. - Billing Disposition and Condition Condition: STABLE Disposition: Home
== END 2018-08-10 18:27 | disposition home or self-care (01) ==
LOC: UCCORT 16:09
DX: S80.11XA Contusion of right lower leg, initial encounter (principal); Z86.711 Personal history of pulmonary embolism
CPT/HCPCS: 99212; G0463